=== PATIENT | male | born 1960 | race Hispanic/Latino ===

== ENCOUNTER 2018-04-27 15:21 | Emergency (ER) | payer SELFPAY ==
[2018-04-27] MEDS ORDERED: ASPIRIN PO ONE (15:30)
[2018-04-27 16:04] LABS: Basophils # (Auto) 0.1 K/mm3 (0.0-0.1); Basophils % (Auto) 0.6 % (0.0-1.8); Eosinophils # (Auto) 0.1 K/mm3 (0.0-0.4); Eosinophils % (Auto) 0.7 % (0.0-4.3); Hematocrit 43.5 % (35.5-45.6); Hemoglobin 14.7 gm/dl (11.8-15.2); Lymphocytes # (Auto) 3.2 K/mm3 (1.2-5.4); Mean Corpuscular HGB Conc 34 % (32-34); Mean Corpuscular Hemoglobin 29 pg (28-32); Mean Corpuscular Volume 85 fl (84-94); Monocytes # (Auto) 1.3 K/mm3 (0.0-0.8); Monocytes % (Auto) 9.4 % (0.0-7.3); Platelet Count 278 K/mm3 (140-440); Red Blood Count 5.12 M/mm3 (3.65-5.03); Red Cell Distribution Width 13.4 % (13.2-15.2)
[2018-04-27 16:08] LABS: BUN/Creatinine Ratio 19; Blood Urea Nitrogen 13 mg/dL (9-20); Calcium 9.4 mg/dL (8.4-10.2); Hemolysis Index 9
--- NOTE | 2018-04-27 17:10 | Emergency Department Report ---
Blank Doc - Documentation Documentation: Patient is 57 years old male with no significant past medical history. Patient presented to the ER complaining of dizziness and imbalance for the last week. Patient also complaining of shortness of breath and a little bit of chest pain according to the patient. The patient denied any fever or cough. Patient found to have a blood pressure 189/112 and a blood sugar of 234. Patient will be moved to our main ED for further evaluation.
--- NOTE | 2018-04-27 17:22 | Emergency Department Report ---
ED Dizziness HPI - General Chief Complaint: Dizziness Stated Complaint: DIZZINESS Time Seen by Provider: 04/27/18 16:46 Source: patient Mode of arrival: Ambulatory Limitations: No Limitations - History of Present Illness Initial Comments: Mr collins is a 57 year-old man with hx of paroxysmal afib on diltiazem who presents with episodes of light headedness. Today was driving from [place] to [place] and pulled off into the hospital because he was having light headedness. no spinning. No chest pain. No palpitations. has been having some shortness of breath. no orthopnea. Had severe light headedness Tuesday as well, resolved. Had a few less severe episodes last week while at home. Not exertional, at rest, not positional. Feels brief palpitations nearly daily. Knows when he goes into afib. he has not been having heart fluttering today. Had a biscuit and diet coke this morning. No fever, no cough. MD Complaint: lightheadedness - Related Data Allergies Allergy/AdvReac Type Severity Reaction Status Date / Time No Known Allergies Allergy Verified 04/27/18 15:26 ED Review of Systems ROS: Stated complaint: DIZZINESS Other details as noted in HPI Comment: All other systems reviewed and negative ED Past Medical Hx - Past Medical History Previous Medical History?: Yes Additional medical history: a fib - Surgical History Past Surgical History?: Yes Additional Surgical History: hernia - Social History Smoking Status: Never Smoker Substance Use Type: None ED Physical Exam - General Limitations: No Limitations General appearance: alert, in no apparent distress - Head Head exam: Present: atraumatic, normocephalic - Eye Eye exam: Present: normal appearance, EOMI - ENT ENT exam: Present: normal exam, mucous membranes moist - Neck Neck exam: Present: normal inspection. Absent: tenderness, meningismus - Respiratory Respiratory exam: Present: normal lung sounds bilaterally. Absent: respiratory distress, wheezes, rales - Cardiovascular Cardiovascular Exam: Present: regular rate, normal rhythm. Absent: systolic murmur, diastolic murmur, rubs, gallop - GI/Abdominal GI/Abdominal exam: Present: soft. Absent: distended, tenderness, guarding - Rectal Rectal exam: Present: deferred - Extremities Exam Extremities exam: Present: normal inspection, full ROM. Absent: tenderness, calf tenderness - Back Exam Back exam: Present: normal inspection. Absent: tenderness - Neurological Exam Neurological exam: Present: alert, oriented X3, CN II-XII intact. Absent: motor sensory deficit - Psychiatric Psychiatric exam: Present: normal affect, normal mood - Skin Skin exam: Present: warm, dry, intact, normal color. Absent: rash ED Course Vital Signs 04/27/18 15:27 Temperature 97.6 F Pulse Rate 89 Respiratory 16 Rate Blood Pressure 189/112 O2 Sat by Pulse 96 Oximetry ED Medical Decision Making - Lab Data Result diagrams: 04/27/18 15:32 04/27/18 15:32 Lab Results 04/27/18 04/27/18 04/27/18 Range/Units 15:32 15:32 16:27 WBC 14.0 H (4.5-11.0) K/mm3 RBC 5.12 H (3.65-5.03) M/mm3 Hgb 14.7 (11.8-15.2) gm/dl Hct 43.5 (35.5-45.6) % MCV 85 (84-94) fl MCH 29 (28-32) pg MCHC 34 (32-34) % RDW 13.4 (13.2-15.2) % Plt Count 278 (140-440) K/mm3 Lymph % (Auto) 23.0 (13.4-35.0) % [place] % (Auto) 9.4 H (0.0-7.3) % Eos % (Auto) 0.7 (0.0-4.3) % Baso % (Auto) 0.6 (0.0-1.8) % Lymph # 3.2 (1.2-5.4) K/mm3 [place] # 1.3 H (0.0-0.8) K/mm3 Eos # 0.1 (0.0-0.4) K/mm3 Baso # 0.1 (0.0-0.1) K/mm3 Seg Neutrophils % 66.3 (40.0-70.0) % Seg Neutrophils # 9.3 H (1.8-7.7) K/mm3 D-Dimer 143.33 (0-234) ng/mlDDU Sodium 133 L (137-145) mmol/L Potassium 3.8 (3.6-5.0) mmol/L Chloride 94.0 L (98-107) mmol/L Carbon Dioxide 23 (22-30) mmol/L Anion Gap 20 mmol/L BUN 13 (9-20) mg/dL Creatinine 0.7 L (0.8-1.5) mg/dL Estimated GFR > 60 ml/min BUN/Creatinine Ratio 19 % Glucose 243 H (75-100) mg/dL Calcium 9.4 (8.4-10.2) mg/dL Troponin T < 0.010 (0.00-0.029) ng/mL - EKG Data 04/27/18 16:08 HR 74, sinus, normal axis, intervals wnl, no ST changes concerning for acute ischemia - Radiology Data CT Head PRIORS: None. FINDINGS: The ventricles are normal in shape and position. The ventricles are nondilated. There is a focal ovoid cystic lesion in the right frontal lobe in the subcortical white matter measuring 2.1 x 1.8 centimeters with surrounding edema. There is mild local mass effect. No midline shift. No evidence of acute ischemic infarct. The basilar cisterns are patent. No intracranial hemorrhage. The paranasal sinuses are clear. The extracranial soft tissues demonstrate no abnormality. The calvarium is intact. The orbits are intact. The mastoid air cells are clear. IMPRESSION: Right frontal lobe lesion may represent an abscess versus cystic neoplasm. Recommend further evaluation with MRI of the brain with and without contrast. CXR: No acute abnormality - Medical Decision Making Mr Collins is a 57 year-old man who presents with episodic light headedness. So severe he pulled off the highway today. No cardiac symptoms. Suspect arrhythmia vs electrolyte derangement vs dehydration, vs CVA. NSR on monitor. VSS. EKG NSR non-ischemic trop neg. Lytes wnl. eleavted WBC. CXR clear. CT head with 1.8 x 2.1cm cystic lesion in right frontal lobe. Abscess vs mass. Spoke with neurosurgery at [facility]. Will transfer for specialist care. Will have MRI at [facility]. Accepted by Dr. Gibbs. Patient agrees with plan. Emtala form signed and in chart. Sending copy of CT head. Critical care attestation.: If time is entered above; I have spent that time in minutes in the direct care of this critically ill patient, excluding procedure time. ED Disposition Clinical Impression: Brain mass Disposition: DC/TX- [facility] HOSP IP Is pt being admited?: No Does the pt Need Aspirin: No Condition: Stable Forms: Accompanied Note
--- NOTE | 2018-04-27 18:20 | Cat Scan Report ---
FINAL REPORT EXAM: CT HEAD/BRAIN WO CON HISTORY: dizziness TECHNIQUE: CT of the head was performed without intravenous contrast. PRIORS: None. FINDINGS: The ventricles are normal in shape and position. The ventricles are nondilated. There is a focal ovoid cystic lesion in the right frontal lobe in the subcortical white matter measuring 2.1 x 1.8 centimeters with surrounding edema. There is mild local mass effect. No midline shift. No evidence of acute ischemic infarct. The basilar cisterns are patent. No intracranial hemorrhage. The paranasal sinuses are clear. The extracranial soft tissues demonstrate no abnormality. The calvarium is intact. The orbits are intact. The mastoid air cells are clear. IMPRESSION: Right frontal lobe lesion may represent an abscess versus cystic neoplasm. Recommend further evaluation with MRI of the brain with and without contrast. Findings were discussed with Dr. Dodd at 3:10 p.m. [facility] on 04/27/2018.
--- NOTE | 2018-04-27 18:31 | XRay Report ---
FINAL REPORT EXAM: XR CHEST 1V AP HISTORY: chest pain TECHNIQUE: Frontal chest radiograph. PRIORS: None. FINDINGS: The left lateral costophrenic angle was not completely included on the study. The cardiomediastinal silhouette is normal. No focal consolidation. No pleural effusion. No pneumothorax. No acute osseous abnormality. IMPRESSION: No acute cardiopulmonary process.
[2018-04-27] MEDS ORDERED: APRESOLINE IV ONE (21:04)
[2018-04-27 22:02] VITALS: BP 168/90
== END 2018-04-27 22:27 | disposition short-term general hospital (02) ==
LOC: ED 15:21
DX: G93.89 Other specified disorders of brain (principal); R06.02 Shortness of breath; I48.0 Paroxysmal atrial fibrillation
CPT/HCPCS: 36415; 70450; 71045; 80048; 83735; 83880; 84484; 85025; 85379; 93005; 93010; 96374; 99285; J0360